=== PATIENT | male | born 1950 | race Caucasian/White ===

== ENCOUNTER → 2017-05-11 | Outpatient (CLI) | payer MEDICARE, OTHER ==
--- NOTE | 2017-05-13 11:47 | RADIOLOGY REPORT (SQ) ---
EXAM DESCRIPTION: MRI LUMBAR SPINE WITHOUT COMPLETED DATE/TIME: 05/11/2017 4:02 pm REASON FOR STUDY: OTHER INTERVERTEBRAL DISC DEGENERATION, LUMBAR REGION (M51.36) M51.36 OTHER INTER VERTEBRAL DISC DEGENERATION, LUMBAR REGION COMPARISON: 2009. TECHNIQUE: Sagittal and Axial imaging includes T1, T2, STIR and gradient echo sequences. Coronal T2/ HASTE imaging. LIMITATIONS: None. FINDINGS: VISUALIZED UPPER ABDOMEN: Limited evaluation is without acute or suspicious abnormality. 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 SEGMENTATION: No transitional anatomy. The lowest well-developed disc space is labeled L5-S1. ALIGNMENT: Grade 1/2 listhesis at the lumbosacral junction. There are bilateral pars defects at L5. VERTEBRAE: Intact. BONE MARROW: Normal. No marrow replacement or reactive changes. DISC SIGNAL: Decreased signal at L3-4, L4-5, L5-S1. POSTERIOR ELEMENTS: As above. HARDWARE: None in the spine. CORD AND CONUS: Normal in size and signal intensity. Conus at the appropriate level. SOFT TISSUES: No aortic aneurysm seen. No bulky retroperitoneal adenopathy or mass. No paraspinal mas s or fluid. L1-L2: No significant spinal stenosis or exit foraminal stenosis. L2-L3: No significant spinal stenosis or exit foraminal stenosis. L3-L4: Disc bulge. Superimposed left paracentral focal disc hernia with some mild inferior extrusion . Flattening of the ventral thecal sac with moderate central canal narrowing, left lateral recess as ymmetric stenosis. Patent neural foramina. L4-L5: Disc bulge with central mild protrusion. This contacts but does not displace the bilateral L5 nerve roots. L5-S1: Listhesis as above. Central canal relatively widely patent. Relative marked bilateral forami nal stenosis. LOWER THORACIC: Incompletely imaged. No stenosis seen. SACRUM: Visualized upper sacrum intact. OTHER: No other significant findings. IMPRESSION: 1. Bilateral L5 pars defects with listhesis as above. Associated bilateral foraminal s tenosis. This looks relatively chronic. 2. Progressive disc disease at L3-4, now with an associate d inferiorly extending mild disc extrusion. TECHNICAL DOCUMENTATION: JOB ID: [id number] [employer]- All Rights Reserved
== END ==
LOC: RAD 15:05
PROVIDERS: ATTEND Physician Assistant
DX: M51.36 Other intervertebral disc degeneration, lumbar region (principal)
CPT/HCPCS: 72148

== ENCOUNTER → 2017-08-10 | Outpatient (CLI) | payer MEDICARE, OTHER ==
[2017-08-10 12:23] LABS: ALANINE AMINOTRANSFERASE 47 U/L (21-72); ALBUMIN 4.6 g/dL (3.5-5.0); ALKALINE PHOSPHATASE 73 U/L (38-126); ANION GAP 11 (5-19); ASPARTATE AMINO TRANSFERASE 33 U/L (17-59); BILIRUBIN,DIRECT 0.4 mg/dL (0.0-0.4); BILIRUBIN,TOTAL 0.7 mg/dL (0.2-1.3); BLOOD UREA NITROGEN 17 mg/dL (7-20); CALCIUM 10.4 mg/dL (8.4-10.2); CARBON DIOXIDE 26 mmol/L (22-30); CHLORIDE 104 mmol/L (98-107); GLUCOSE 95 mg/dL (75-110); POTASSIUM 4.3 mmol/L (3.6-5.0); SODIUM 141.3 mmol/L (137-145); TOTAL PROTEIN 7.5 g/dL (6.3-8.2)
== END ==
LOC: LAB 11:47
PROVIDERS: ATTEND Nurse Practitioner Psychiatric/Mental Health
DX: G89.4 Chronic pain syndrome (principal)
CPT/HCPCS: 36415; 80053

== ENCOUNTER → 2018-05-07 | Outpatient (CLI) | payer MEDICARE, OTHER ==
--- NOTE | 2018-05-07 16:21 | RADIOLOGY REPORT (SQ) ---
EXAM DESCRIPTION: L SPINE W/FLEX/EXT COMPLETED DATE/TIME: 05/07/2018 4:07 pm REASON FOR STUDY: M54.16 RADICULOPATHY, LUMBAR REGION M54.16 RADICULOPATHY, LUMBAR REGION COMPARISON: None. NUMBER OF VIEWS: Seven views. TECHNIQUE: AP, lateral, obliques, flexion, extension, and sacral radiographic images acquired. LIMITATIONS: None. FINDINGS: MINERALIZATION: Osteopenia. SEGMENTATION: Normal. No transitional anatomy. ALIGNMENT: There is grade 1 retrolisthesis of L4 on L5. There is grade 2 anterolisthesis of L5 on S1 . FLEXION/EXTENSION: No instability. VERTEBRAE: Maintained height. No fracture or worrisome bone lesion. DISCS: Preserved height. No significant osteophytes or end plate irregularity. POSTERIOR ELEMENTS: There are bilateral pars defects at L5-S1. HARDWARE: None in the spine. PARASPINAL SOFT TISSUES: Normal. PELVIS: Intact as visualized. No fractures or worrisome bone lesions. SI joints intact. OTHER: No other significant finding. IMPRESSION: Osteopenia. Retrolisthesis of L4 on L5. Grade 2 anterolisthesis of L5 on S1. Bilateral pars defects. No instab ility. TECHNICAL DOCUMENTATION: JOB ID: [id number] [employer]- All Rights Reserved Reading location - IP/workstation name: [email or web address]
--- NOTE | 2018-05-07 16:27 | RADIOLOGY REPORT (SQ) ---
EXAM DESCRIPTION: CT LUMBAR SPINE WITHOUT COMPLETED DATE/TIME: 05/07/2018 3:52 pm REASON FOR STUDY: M54.16 RADICULOPATHY, LUMBAR REGION M54.16 RADICULOPATHY, LUMBAR REGION COMPARISON: MRI lumbar spine 05/11/2017, 08/11/2009 TECHNIQUE: Axial images acquired through the lumbar spine without intravenous contrast. Images revi ewed with lung, soft tissue and bone windows. Reconstructed coronal and sagittal MPR images reviewed . All images stored on PACS. All CT scanners at this facility use dose modulation, iterative reconstruction, and/or weight based d osing when appropriate to reduce radiation dose to as low as reasonably achievable (ALARA). [facility]: Dose Right [facility]: CareDose [facility]: Dose Right [facility]: Teradose 4D [facility]: Smart vIPtela RADIATION DOSE: CT Rad equipment meets quality standard of care and radiation dose reduction techniq ues were employed. CTDIvol: 4.9 mGy. DLP: 158 mGy-cm. mGy. LIMITATIONS: None. FINDINGS: SEGMENTATION: Normal. No transitional anatomy. ALIGNMENT: Very mild convex leftward lumbar curvature. 25% anterolisthesis of L5 over S1 VERTEBRAL BODIES: No fractures. No dislocation. No acute findings. DISCS: The T11-12, T12-L1, L1-2, and L2-3 levels are unremarkable. At L3-4, a left paracentral disc herniation with inferior migration of the extruded fragment is prese nt, flattening the thecal sac at the takeoff of the left proximal L4 nerve root in the lateral recess . This is best shown on soft tissue window axial images 72-75, and sagittal reconstruction image 26 through 28. This is similar compared to prior MRI 05/11/2017 Elsewhere at L3-4, Mild central canal narrowing results from broad diffuse posterior disc bulge and m oderate bilateral facet and ligament hypertrophy. This is best shown on axial image 70. There is mi ld bilateral inferior foraminal narrowing without exit L3 nerve root impingement. At L4-5, moderate central canal stenosis results from broad diffuse posterior disc bulge and bulky bi lateral facet and ligament hypertrophy. Mild bilateral inferior foraminal narrowing is present witho ut exiting L4 nerve root impingement. Bilateral spondylolysis at L5 with 25% anterolisthesis of L5 over S1. This is similar compared to pr ior studies. There is no central stenosis at this level. High-grade bilateral foraminal narrowing i s present with effacement of the fat around the exiting L5 nerve roots bilaterally. PEDICLES, TRANSVERSE PROCESSES: No acute fracture FACETS, POSTERIOR ELEMENTS: Bilateral L5 spondylolysis. No acute fracture HARDWARE: None in the spine. VISUALIZED RIBS: No fractures. SOFT TISSUES: No significant or acute finding in adjacent soft tissues. OTHER: No other significant finding. IMPRESSION: Left paracentral disc herniation with inferior migration of the extruded fragment at L3- 4. Is flattens the proximal left L4 nerve root in the lateral recess. This is similar compared to 1 . 25% anterolisthesis of L5 over S1 from bilateral spondylolysis. High-grade bilateral foraminal steno sis is present. These findings are similar compared to MRI 05/11/2017. TECHNICAL DOCUMENTATION: JOB ID: [id number] Quality ID # [id number]: Final reports with documentation of one or more dose reduction techniques (e.g., Au tomated exposure control, adjustment of the mA and/or kV according to patient size, use of iterative reconstruction technique) 2010 [employer]- All Rights Reserved Reading location - IP/workstation name: [email or web address]
--- NOTE | 2018-05-08 09:47 | RADIOLOGY REPORT (SQ) ---
EXAM DESCRIPTION: MRI LUMBAR SPINE COMBO COMPLETED DATE/TIME: 05/07/2018 6:01 pm REASON FOR STUDY: M54.16 RADICULOPATHY, LUMBAR REGION M54.16 RADICULOPATHY, LUMBAR REGION COMPARISON: 05/11/2017 TECHNIQUE: Sagittal and Axial imaging includes T1, T1 post gadolinium, T2, STIR and gradient echo se quences. Coronal T2/HASTE imaging. CONTRAST TYPE AND DOSE: 10 mL Dotarem. RENAL FUNCTION: GFR > 60. LIMITATIONS: None. FINDINGS: VISUALIZED UPPER ABDOMEN: Limited evaluation. No acute or suspicious findings suggested. SEGMENTATION: No transitional anatomy. The lowest well-developed disc space is labeled L5-S1. ALIGNMENT: Mild convex left scoliosis. Grade 1 anterolisthesis L5 relative to L4 and S1. VERTEBRAE: Intact. No fractures. BONE MARROW: Normal. No marrow replacement or reactive changes. DISC SIGNAL: Desiccation L3-4 through L5-S1. POSTERIOR ELEMENTS: Spondylolysis L5-S1. HARDWARE: None in the spine. CORD AND CONUS: Normal in size and signal intensity. Conus at the appropriate level. SOFT TISSUES: No aortic aneurysm seen. No bulky retroperitoneal adenopathy or mass. No paraspinal mas s or fluid. L1-L2: No significant spinal stenosis or exit foraminal stenosis. L2-L3: No significant spinal stenosis or exit foraminal stenosis. L3-L4: Mild -moderate spinal stenosis due to left paracentral and downward disc protrusion. L4-L5: Central annular fissure. Facet arthropathy. No significant stenosis. L5-S1: Disc bulge and facet arthropathy. Disc contacts both exiting nerve roots in the neural forami na. LOWER THORACIC: Incompletely imaged. No stenosis seen. SACRUM: Visualized upper sacrum intact. ENHANCEMENT: No abnormal enhancement. OTHER: No other significant findings. IMPRESSION: Spondylolisthesis and spondylolysis L5-S1. Mild -moderate spinal stenosis L3-4. TECHNICAL DOCUMENTATION: JOB ID: [id number] [employer]- All Rights Reserved Reading location - IP/workstation name: [email or web address]
== END ==
LOC: RAD 16:51
PROVIDERS: ATTEND Specialist
DX: M51.16 Intervertebral disc disorders with radiculopathy, lumbar region (principal); M43.17 Spondylolisthesis, lumbosacral region
CPT/HCPCS: 72114; 72131; 72158; 82565